=== PATIENT | male | born 1985 | race African-American/Black ===

== ENCOUNTER 2016-10-20 03:27 | Emergency (ER) | payer OTHER ==
[~2016-10-20] VITALS: Ht 177.8 cm; Wt 85.7 kg
[~2016-10-20 03:27] MED LIST: ALBUTEROL0.09 MG/A1; ALBUTEROL0.09 MG/A1 PO; PROAIR HFA0.09 MG/Ac IH
[2016-10-20 03:33] VITALS: BP 105/62
--- NOTE | 2016-10-20 04:36 | NUR ---
PATIENT LEFT WITHOUT BEING SEEN BY DR. Duckworth. NO FURTHER CARE PROVIDED FOR PATIENT.
== END 2016-10-20 04:36 | disposition left against medical advice (07) ==
LOC: MED 03:27
DX: R05 Cough (principal); J02.9 Acute pharyngitis, unspecified; Z53.21 Procedure and treatment not carried out due to patient leaving prior to being seen by health care provider

== ENCOUNTER 2016-12-23 05:10 | Emergency (ER) | payer MEDICAID, OTHER ==
[~2016-12-23] VITALS: Ht 177.8 cm; Wt 85.3 kg
[2016-12-23 05:25] VITALS: BP 98/65
--- NOTE | 2016-12-23 05:30 | NUR ---
TO ER BED 4
--- NOTE | 2016-12-23 05:32 | NUR ---
31 Y/O M W/C/O COUGH, BODYACHES, INSOMNIA, FOR 5 DAYS. NO S/S OF DISTRESS NOTED. ER MADE AWARE.
--- NOTE | 2016-12-23 05:51 | NUR ---
Patient being evaluated by physician at bedside.
[2016-12-23 06:09] VITALS: BP 98/65
--- NOTE | 2016-12-23 06:09 | NUR ---
Patient discharged with v/s stable. Written and verbal after care instructions given and explained. Patient alert, oriented and verbalized understanding of instructions. Ambulatory with steady gait. All questions addressed prior to discharge. ID band removed. Patient advised to follow up with PMD. Rx of AZITHROMYCIN AND TYLENOL WITH CODEINE given. Patient educated on indication of medication including possible reaction and side effects. Opportunity to ask questions provided and answered.
== END 2016-12-23 06:09 | disposition home or self-care (01) ==
LOC: MED 05:10
DX: J02.9 Acute pharyngitis, unspecified (principal); F17.210 Nicotine dependence, cigarettes, uncomplicated; Z88.0 Allergy status to penicillin; Z88.1 Allergy status to other antibiotic agents
CPT/HCPCS: 99283

== ENCOUNTER 2017-04-17 04:03 | Emergency (ER) | payer MEDICAID ==
[~2017-04-17] VITALS: Ht 177.8 cm; Wt 84.4 kg
[2017-04-17 04:07] VITALS: BP 127/90
--- NOTE | 2017-04-17 04:13 | NUR ---
PT TAKEN TO BED 7
--- NOTE | 2017-04-17 04:16 | NUR ---
31 Y/O M W/C/O COUGH, COLDS, BODYACHES, H/A , CANT SLEEP FOR 5 DAYS. LUNGS CLEAR BILATERAL, O2 SAT 98% RA. PT DENIES ANY SOB. JOLIE QUINTERO MADE AWARE.
--- NOTE | 2017-04-17 04:26 | NUR ---
Dr. Hardy evaluating patient at bedside.
--- NOTE | 2017-04-17 04:26 | NUR ---
Chela pennington in ED - 04/17/17 at 0426 by TAYLOR [id number]- CALLED [facility] FOR [facility] ADMISSION (CONFIRMED WITH ADMIT CLERK DOUGHERTY). DR. YEBOAH SPOKE WITH DR. BRAVO
[2017-04-17 04:32] VITALS: BP 127/90
--- NOTE | 2017-04-17 04:32 | NUR ---
Patient discharged with v/s stable. Written and verbal after care instructions given and explained. Patient alert, oriented and verbalized understanding of instructions. Ambulatory with steady gait. All questions addressed prior to discharge. ID band removed. Patient advised to follow up with PMD. Rx of CODEINE/PROMETHAZINE, IBUPROFEN, AND AZITHROMYCIN given. Patient educated on indication of medication including possible reaction and side effects. Opportunity to ask questions provided and answered.
== END 2017-04-17 04:32 | disposition home or self-care (01) ==
LOC: MED 04:03
DX: J45.901 Unspecified asthma with (acute) exacerbation (principal); F17.210 Nicotine dependence, cigarettes, uncomplicated; J06.9 Acute upper respiratory infection, unspecified; Z88.0 Allergy status to penicillin; Z88.8 Allergy status to other drugs, medicaments and biological substances
CPT/HCPCS: 99283

== ENCOUNTER 2018-01-21 06:54 | Emergency (ER) | payer MEDICAID, OTHER ==
[~2018-01-21] VITALS: Ht 177.8 cm; Wt 91.6 kg
[2018-01-21 06:59] VITALS: BP 132/72
--- NOTE | 2018-01-21 07:10 | NUR ---
PATIENT PRESENTS TO ED WITH COMPLAINTS OF COUGH AND COLD SYMPTOMS. PATIENT REPORTS COUGH IS PRODUCTIVE. DENIES N/V/D; SKIN IS PINK/WARM/DRY; AAOX4 WITH EVEN AND STEADY GAIT; LUNGS CLEAR BL; HR EVEN AND REGULAR; PT DENIES ANY FEVER, CP, SOB, OR COUGH AT THIS TIME; PATIENT STATES PAIN OF 5/10 AT THIS TIME; VSS; PATIENT POSITIONED FOR COMFORT; HOB ELEVATED; BEDRAILS UP X1; BED DOWN. ER MD MADE AWARE OF PT STATUS.
[2018-01-21 08:00] VITALS: BP 145/90
--- NOTE | 2018-01-21 08:00 | NUR ---
Patient discharged with v/s stable. Written and verbal after care instructions given and explained. Patient alert, oriented and verbalized understanding of instructions. Ambulatory with steady gait. All questions addressed prior to discharge. ID band removed. Patient advised to follow up with PMD. Rx of CODIENE/PROMETHAZINE AND AZITHROMYCIN given. Patient educated on indication of medication including possible reaction and side effects. Opportunity to ask questions provided and answered.
== END 2018-01-21 08:00 | disposition home or self-care (01) ==
LOC: MED 06:54
DX: J02.8 Acute pharyngitis due to other specified organisms (principal); B96.89 Other specified bacterial agents as the cause of diseases classified elsewhere; R03.0 Elevated blood-pressure reading, without diagnosis of hypertension; F17.210 Nicotine dependence, cigarettes, uncomplicated; Z88.0 Allergy status to penicillin; Z88.8 Allergy status to other drugs, medicaments and biological substances
CPT/HCPCS: 87081; 99284

== ENCOUNTER 2018-06-30 06:05 | Emergency (ER) | payer OTHER ==
[~2018-06-30] VITALS: Ht 177.8 cm; Wt 92.5 kg
[2018-06-30 06:08] VITALS: BP 123/79
--- NOTE | 2018-06-30 06:08 | NUR ---
TO BED # 8 AMBULATORY, REPORT GIVEN TO HIRA TAVERAS
--- NOTE | 2018-06-30 06:14 | NUR ---
Dr. Govea evaluating patient at bedside.
--- NOTE | 2018-06-30 06:15 | NUR ---
c/o cough, sore throat for 4 days. rr even and unlabored, bl bs clear throughout. pt has productive cough that he states is worse at night. pt sitting in bed, in no resp. distress. pt states he smokes about 1/2 pack of cigarettes a day. no pmh
--- NOTE | 2018-06-30 06:22 | NUR ---
Patient discharged with v/s stable. Written and verbal after care instructions given and explained. Patient alert, oriented and verbalized understanding of instructions. Ambulatory with steady gait. All questions addressed prior to discharge. ID band removed. Patient advised to follow up with PMD. Rx of tessalon pearles given. Patient educated on indication of medication including possible reaction and side effects. Opportunity to ask questions provided and answered.
[2018-06-30 06:23] VITALS: BP 123/79
== END 2018-06-30 06:22 | disposition home or self-care (01) ==
LOC: MED 06:05
DX: R05 Cough (principal); F17.210 Nicotine dependence, cigarettes, uncomplicated; J45.909 Unspecified asthma, uncomplicated; Z72.0 Tobacco use; Z76.5 Malingerer [conscious simulation]; Z88.0 Allergy status to penicillin; Z88.8 Allergy status to other drugs, medicaments and biological substances; Z71.6 Tobacco abuse counseling
CPT/HCPCS: 99283

== ENCOUNTER 2018-09-04 03:55 | Emergency (ER) | payer OTHER ==
[~2018-09-04] VITALS: Ht 177.8 cm; Wt 85.3 kg
[2018-09-04 04:03] VITALS: BP 105/78
--- NOTE | 2018-09-04 04:06 | NUR ---
PT AMBULATED TO BED 4 WITH VSS.
--- NOTE | 2018-09-04 04:10 | NUR ---
PT BIB SELF C/O COUGH X3 DAYS. PT REPORTS MOIST PRODUCTIVE COUGH WITH PRESENCE OF THICK WHITE MUCUS. PT DENIES SOB, RR SYMMETRICAL, NON-LABORED, WITH BREATH SOUNDS CLEAR THROUGHOUT. PT REPORTS THROBING HEADACHE AT 7/10 FROM COUGHING. PT AA0X4. ER MD TO SEE PT. MEDHX: DENIES RX: IBUPROFEN, PROMETHAZINE
--- NOTE | 2018-09-04 04:12 | NUR ---
Dr. Apple evaluating patient at bedside.
[2018-09-04 04:16] VITALS: BP 105/78
--- NOTE | 2018-09-04 04:16 | NUR ---
Patient discharged BY DR SILVEIRA with v/s stable. Written and verbal after care instructions given and explained. Patient alert, oriented and verbalized understanding of instructions. Ambulatory with steady gait. All questions addressed prior to discharge. ID band removed. Patient advised to follow up with PMD. Rx of PROMETHAZINE AND LEVAQUIN given. Patient educated on indication of medication including possible reaction and side effects. Opportunity to ask questions provided and answered.
== END 2018-09-04 04:16 | disposition home or self-care (01) ==
LOC: MED 03:55
DX: J20.9 Acute bronchitis, unspecified (principal); Z88.0 Allergy status to penicillin; Z88.8 Allergy status to other drugs, medicaments and biological substances
CPT/HCPCS: 99283

== ENCOUNTER 2019-08-29 13:07 | Emergency (ER) | payer OTHER ==
[~2019-08-29] VITALS: Ht 180.3 cm; Wt 85.3 kg
[2019-08-29 13:25] VITALS: BP 132/91
--- NOTE | 2019-08-29 13:35 | NUR ---
PT AMB TO BED 10
--- NOTE | 2019-08-29 14:01 | NUR ---
C/O CP WITH PRODUCTIVE COUGH WITH GREEN PHLEM, HEADACHE , BODY ACHES, SORE THROAT X 4 DAYS. PT REPORTS PAIN 8/10. LUNGS CLEAR BILATERALLY. RR EVEN AND UNLABORED. HAS BEEN TAKING OTC IBUPROFEN AND TYLENOL WITH SOME RELIEF. PT ALERT AND AWAKE, VS STABLE, AMBULATORY. PMH- DENIES
[2019-08-29 14:45] VITALS: BP 132/91
--- NOTE | 2019-08-29 14:45 | NUR ---
Patient discharged with v/s stable. Written and verbal after care instructions given and explained. Patient alert, oriented and verbalized understanding of instructions. Ambulatory with steady gait. All questions addressed prior to discharge. ID band removed. Patient advised to follow up with PMD. Rx of MOTRIN,PROMETHAZINE given. Patient educated on indication of medication including possible reaction and side effects. Opportunity to ask questions provided and answered.
== END 2019-08-29 14:45 | disposition home or self-care (01) ==
LOC: MED 13:07
DX: J06.9 Acute upper respiratory infection, unspecified (principal); R03.0 Elevated blood-pressure reading, without diagnosis of hypertension; F12.90 Cannabis use, unspecified, uncomplicated; Z88.0 Allergy status to penicillin; Z88.8 Allergy status to other drugs, medicaments and biological substances
CPT/HCPCS: 87804; 99283

== ENCOUNTER 2020-07-07 05:50 | Emergency (ER) | payer OTHER ==
[~2020-07-07] VITALS: Ht 177.8 cm; Wt 79.4 kg
[2020-07-07 05:55] VITALS: BP 132/79
--- NOTE | 2020-07-07 05:55 | NUR ---
TO TENT # 01 AMBULATORY
--- NOTE | 2020-07-07 06:05 | NUR ---
SEEN AND EXAMINED BY ELIZABETH WITH ORDERS AND CARRIED OUT.
--- NOTE | 2020-07-07 06:30 | NUR ---
Patient discharged with v/s stable. Written and verbal after care instructions given and explained. Patient alert, oriented and verbalized understanding of instructions. Ambulatory with steady gait. All questions addressed prior to discharge. ID band removed. Patient advised to follow up with PMD. Rx of motrin, promethazine , azithromycin given. Patient educated on indication of medication including possible reaction and side effects. Opportunity to ask questions provided and answered.
[2020-07-07 06:35] VITALS: BP 132/79
== END 2020-07-07 06:30 | disposition home or self-care (01) ==
LOC: MED 05:50
DX: J02.8 Acute pharyngitis due to other specified organisms (principal); B96.89 Other specified bacterial agents as the cause of diseases classified elsewhere; R03.0 Elevated blood-pressure reading, without diagnosis of hypertension; F17.210 Nicotine dependence, cigarettes, uncomplicated; Z88.0 Allergy status to penicillin; Z88.8 Allergy status to other drugs, medicaments and biological substances
CPT/HCPCS: 99283

== ENCOUNTER 2020-08-07 10:42 | Emergency (ER) | payer OTHER ==
[~2020-08-07] VITALS: Ht 177.8 cm; Wt 81.2 kg
[2020-08-07 11:02] VITALS: BP 138/78
--- NOTE | 2020-08-07 11:02 | NUR ---
Patient ambulated to bed 12. RN evaluating patient at bedside.
[2020-08-07] MEDS ORDERED: KETOROLAC 60 MG/2 ML VIAL IM ONE (11:20)
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
[2020-08-07 11:45] VITALS: BP 138/78
== END 2020-08-07 11:40 | disposition home or self-care (01) ==
LOC: MED 10:42
DX: S46.811A Strain of other muscles, fascia and tendons at shoulder and upper arm level, right arm, initial encounter (principal); S29.011A Strain of muscle and tendon of front wall of thorax, initial encounter; V49.9XXA Car occupant (driver) (passenger) injured in unspecified traffic accident, initial encounter; Y93.89 Activity, other specified; Y92.89 Other specified places as the place of occurrence of the external cause; Y99.8 Other external cause status
CPT/HCPCS: 96372; 99283; J1885